=== PATIENT | female | born 1990 | race American Indian/Alaskan Native ===

== ENCOUNTER 2022-04-12 00:14 | Emergency (ER) | payer MEDICAID, OTHER, SELFPAY ==
[2022-04-12 00:15] VITALS: BP 125/66; PULSE 116; RESP 20; TEMP 36.6; O2SAT 98
--- NOTE | 2022-04-12 01:08 | ED.EXTPRO ---
HPI - Extremity Problem General Chief complaint: Extremity Problem,Nontraumatic Stated complaint: LEG INFECTION BOTH Time Seen by Provider: 04/12/22 01:00 Source: patient Mode of arrival: Ambulatory History of Present Illness HPI Narrative: Patient brought in by mother. Patient has been going to [facility] for the past week and they have been changing some skin dressing on her legs. 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 No IV drug use. She states she has chronic lesions on her body including her back that are not new. However dressings on the legs or new. No confirmed history of MRSA. Patient denies does not want a test. Has not been on any antibiotics recently. She has been at this facility for 1 week. The lesions on her left lower extremity from knee down to ankle have worsened in the past week. She states 1 of the reasons his because she has some shoes that she was wearing that irritated the lesions on her ankle. It was rubbing against the skin. This seemed to have triggered the other lesions on her left calf. Pants removed. Band-Aids were removed. Related Data Home Medications Medication Instructions Recorded Confirmed buprenorphine 12 mg-naloxone 3 mg 1 alli sublingual ##0 08/06/16 sublingual film (Suboxone) bupropion HCl 200 mg tablet,12 hr 450 mg PO QDAY ##0 08/06/16 sustained-release (Wellbutrin SR) Previous Rx's Medication Instructions Recorded doxycycline monohydrate 100 mg 100 mg PO BID #20 caps 04/12/22 capsule Review of Systems Review of Systems Narrative: GENERAL: Denies chills, fatigue, malaise, fever, sweats. HEENT: Denies sinus pain, ear pain, sore throat RESPIRATORY: Denies dyspnea, cough CARDIOVASCULAR: Denies chest pain, palpitations GASTROINTESTINAL: Denies nausea, vomiting, abdominal pain : Denies dysuria, frequency, hematuria MUSCULOSKELETAL: denies muscle or bony pain SKIN: Denies rash, positive skin lesions and skin wounds NEUROLOGIC: Denies weakness, numbness ROS Unobtainable: All systems reviewed & are unremarkable except as noted in HPI and below Patient History Social History Smoking Status: Current every day smoker Smoking Status: Current every day smoker Substance Use Type: opiates and methamphetamine Exam Narrative Exam Narrative: GENERAL: in no distress, not toxic not dyspneic HEAD: Normocephalic. EYES: Pupils equal round No scleral icterus. EXTREMITIES: No gross deformities. BACK: No flank tenderness. NEURO: AOx4. SKIN: Warm and dry, there are multiple small circular lesions/dry ulcerations on the back and legs and small amount on the arms. These appear to be chronic. Sizes range between 3 mm upwards to 1 cm. Predominantly of concern are the lesions on the left lower extremity. She was in socks removed. Pants are removed. Band-Aids were removed off of the left leg. There are multiple lesions ranging in size from a size of a dime to a half-dollar. No bleeding. No fat or bone or muscle exposure seen. They are superficial ulcerations. No red streaking. Mild tenderness. No palpable abscesses. Foot otherwise warm soft and pink. No necrotic tissue or toes. No crepitus on the skin or calf or leg. No pain out of proportion to exam PSYCH: Not anxious, is cooperative Initial Vital Signs Initial Vital Signs: Vital Signs Temperature 97.9 F 04/12/22 00:15 Pulse Rate 116 H 04/12/22 00:15 Respiratory Rate 20 04/12/22 00:15 Blood Pressure 125/66 04/12/22 00:15 Pulse Oximetry 98 04/12/22 00:15 Oxygen Delivery Method 04/12/22 00:15 Course Course Course Narrative: No new issues during course of stay Orders Ordered: Discontinued Medications Bacitracin (Bacitracin Oint 0.9 Gm Pckt) 2 applic TOP NOW ONE Stop: 04/12/22 01:26 Last Admin: 04/12/22 01:42 Dose: 2 applic Documented By: KEITH Doxycycline Hyclate (Doxycycline Hyclate 100 Mg Tablet) 100 mg PO NOW ONE Stop: 04/12/22 01:18 Last Admin: 04/12/22 01:43 Dose: 100 mg Documented By: KEITH Reevaluation(s) Reevaluation #1: Spoke with patient and mother. They agree with new style of dressing care and dressing changes. No longer to use Band-Aids. The adhesive seemed to irritate the skin edges more. Return precautions reviewed with him. Wound care clinic provided. Antibiotics started tonight. Prescription provided. They desire discharge home Time: 01:24 Vital Signs Vital signs: Vital Signs - 8 hr 04/12/22 00:15 Temperature 97.9 F Pulse Rate 116 H Respiratory Rate 20 Blood Pressure 125/66 Pulse Oximetry 98 Oxygen Delivery Method Room Air MDM - Extremity (Nontraumatic) Differential Diagnosis Differential diagnosis: Likely cellulitis MDM Narrative Medical decision making narrative: Appropriate for discharge home. New dressing care which includes bacitracin Kerlix and Reji wrap provided for patient. Wound care clinic referral given. Prescriptions provided for doxycycline and started here tonight. Not toxic at discharge. Return precautions reviewed with them. They desire discharge home Discharge Plan Departure Patient Disposition: Home Clinical Impression: Cellulitis Instructions: DI for Cellulitis -- Adult Activity Restrictions/Additional Instructions: Please change dressing on your leg daily as demonstrated here. Please call provided wound care clinic tomorrow for continued wound care treatment. Do not use Band-Aids to cover your wounds. Please continue antibiotic doxycycline that has been sent to your [facility], pick this up tomorrow. Return if worse if any questions or concerns Prescriptions: New doxycycline monohydrate 100 mg capsule 100 mg PO BID Qty: 20 0RF No Action bupropion HCl [Wellbutrin SR] 200 MG tablet extended release 12 hr 450 mg PO QDAY Qty: 0 buprenorphine-naloxone [Suboxone] 12 MG/3 MG film 1 alli Sublingual Qty: 0 Referrals: Kobi Good MD [Physician] - Visit Report Forms: Patient Portal/API
--- NOTE | 2022-04-12 01:15 | PC.NURSE ---
Areas of open sores to the left lower extremity - from knee to ankle - states that she was getting some wound care at the [facility] and that they gave her some kind of honey to put on the wounds - states that she ran out of supplies and was putting bandaids on the sites - today c/o numbness to the extremity - ambulatory with steady gait - unassisted - PWD with cap refill brisk
[2022-04-12] MEDS: BACITRACIN OINT 0.9 GM PCKT 2 APPLIC TOP (01:42)
[2022-04-12] MEDS: DOXYCYCLINE HYCLATE 100 MG TABLET PO (01:43)
== END 2022-04-12 01:52 | disposition home or self-care (01) ==
PROVIDERS: Emergency Provider Emergency Medicine
DX: L03.116 Cellulitis of left lower limb (principal)
CPT/HCPCS: 99283

== ENCOUNTER 2022-04-25 10:04 | Emergency (ER) | payer MEDICAID, OTHER, SELFPAY ==
[2022-04-25 10:35] VITALS: BP 127/73; PULSE 117; RESP 14; TEMP 37.1; O2SAT 98; BMI 32.1
--- NOTE | 2022-04-25 10:43 | DI.US.S_ITS ---
PROCEDURE: US PERIPH VENOUS LOW EXTREM LT INDICATIONS: rule out DVT TECHNIQUE: Real-time imaging, as well as color and pulse Doppler interrogation, were performed of the lower extremity deep veins from the inguinal ligament to the popliteal fossa. COMPARISON: None. FINDINGS: The common femoral, femoral and popliteal veins are normally compressible, and free of intraluminal thrombus. Color and pulse Doppler demonstrate normal phasic intraluminal flow. There is normal augmentation response to distal compression maneuver. There is an enlarged lymph node in the left inguinal area measuring 2.8 x 2.2 x 1.0 cm. IMPRESSION: 1. No DVT in the left lower extremity. 2. Left inguinal lymphadenopathy. Recommend clinical correlation and follow-up. Dictated by: John Silva M.D. on 04/25/2022 at 11:38 Approved by: John Silva M.D. on 04/25/2022 at 11:40
[2022-04-25] MEDS: BACITRACIN OINT 0.9 GM PCKT 1 APPLIC TOP (14:00)
[2022-04-25] MEDS: cephALEXin 250 MG CAPSULE 500 MG PO (14:01)
[2022-04-25] MEDS: KETOROLAC 30 MG/ML VIAL 15 MG IM (14:01)
[2022-04-25] MEDS: TRIMETH/SULFA 160/800 (DS) TABLET 1 TAB PO (14:01)
--- NOTE | 2022-04-25 14:01 | PC.NURSE ---
assessment done by provider
[2022-04-25 14:17] LABS: Add Manual Diff / Slide Review NO; Basophils Absolute Auto 0 /uL (0-100); Basophils Percent Auto 0.3 % (0-2); Eosinophils Absolute Auto 0 /uL (0-450); Eosinophils Percent Auto 0.2 % (2-4); Hematocrit 33.2 % (36-46); Hemoglobin 11.2 g/dL (12.0-16.0); Lymphocytes Absolute Auto 1600 /uL (1100-4500); Lymphocytes Percent Auto 11.9 % (25-40); Mean Corpuscular HGB Conc 33.7 % (30-36); Mean Corpuscular Hemoglobin 26.4 PG (26-34); Mean Corpuscular Volume 78.3 fL (80-100); Monocytes Absolute Auto 600 /uL (0-900); Monocytes Percent Auto 4.4 % (3-14); Neutrophils Absolute Auto 11100 /uL (1500-7000); Neutrophils Percent Auto 83.2 % (50-75); Platelet Count 332 X10^3/uL (150-400); Red Blood Cell Count 4.24 X10^6/uL (4.0-5.2); Red Cell Distribution Width 14.7 % (11.6-14.8); White Blood Cell Count 13.4 X10^3/uL (4.5-11.0)
[2022-04-25 14:27] LABS: Alanine Aminotransferase 27 IU/L (<35); Albumin 4.2 g/dL (3.5-5.0); Alkaline Phosphatase 134 U/L (38-126); Aspartate Aminotransferase 36 IU/L (14-36); BUN Creatinine Ratio 14.9 (6-22); Bilirubin Total 0.4 mg/dL (0.2-1.3); Blood Urea Nitrogen 13 mg/dL (7-17); Calcium 8.4 mg/dL (8.4-10.2); Carbon Dioxide 30 mmol/L (22-32); Chloride 99 mmol/L (98-107); Estimated Glomerular Filt Rate > 60 mL/min (>60); Globulin 4.3 g/dL (1.7-4.1); Glucose 99 mg/dL (70-100); HEMOLYSIS < 15 (0-50); Potassium 3.6 mmol/L (3.4-5.1); Sodium 138 mmol/L (137-145); Total Protein 8.5 g/dL (6.3-8.2)
[2022-04-25 14:42] VITALS: BP 119/77; PULSE 110; O2SAT 100
[2022-04-25 14:43] LABS: Procalcitonin 0.07 ng/mL (<0.5)
--- NOTE | 2022-04-25 16:22 | ED_ITS ---
HPI - Extremity Problem General Chief complaint: Extremity Problem,Nontraumatic Stated complaint: r/o DVT, swelling of the legs Time Seen by Provider: 04/25/22 12:10 Source: patient Mode of arrival: Wheelchair History of Present Illness HPI Narrative: This is a 31-year-old female presents to the emergency department complaining wounds on the bilateral lower extremities which she has been on doxycycline for for the last 10 days and under the care of [facility]. There has not been and wound culture obtained, patient came in today for new redness, tenderness and low-grade fever last night and today on her medial left lower extremity. She has approximately 10 healing wounds to left lower extremity, 2 wounds on her right lower extremity, and 3 wounds on her trunk which are all healing as expected. Patient states that they are not as swollen as they were, or as painful, she is been having dressing changes to all of them. Related Data Home Medications Medication Instructions Recorded Confirmed buprenorphine 12 mg-naloxone 3 mg 1 alli sublingual ##0 08/06/16 sublingual film (Suboxone) bupropion HCl 200 mg tablet,12 hr 450 mg PO QDAY ##0 08/06/16 sustained-release (Wellbutrin SR) Previous Rx's Medication Instructions Recorded doxycycline monohydrate 100 mg 100 mg PO BID #20 caps 04/12/22 capsule cephalexin 500 mg capsule 500 mg PO TID 7 days #21 caps 04/25/22 mupirocin 2 % topical ointment 1 applic topical BID #22 grams 04/25/22 sulfamethoxazole 800 1 tab PO BID #20 tabs 04/25/22 mg-trimethoprim 160 mg tablet (Bactrim DS) Allergies Allergy/AdvReac Type Severity Reaction Status Date / Time No Known Drug Allergies Allergy Verified 04/25/22 10:35 Review of Systems Review of Systems Narrative: Review of systems is negative for acute abnormalities unless otherwise noted in HPI Patient History Social History Smoking Status: Current every day smoker Smoking Status: Current every day smoker alcohol intake frequency: holidays/special occasions only Substance Use Type: opiates and methamphetamine Exam Narrative Exam Narrative: Reviewed vitals signs and nursing notes. General: cooperative, comfortable, in no acute distress, well groomed HEENT: symmetrical facial expressions, moist mucous membranes Cardiovascular: regular rate and rhythm, no peripheral edema, warm extremities MSK: moves all extremities, neurovascularly intact, no weakness, normal tone Skin: brisk capillary refill, without pallor, medial left lower leg with warmth, tenderness, erythema approximately 6 cm x 4 cm not associated with a wound, appr oximately 10 wounds to the left lower extremity which are all in varying degrees of healing, all of them were debrided of all tissue by myself, irrigated with normal saline, a wound culture was obtained of the other wounds and then treated with bacitracin and bandages. Neuro: normal speech and cognition, A&O x3, ambulatory, clear speech Psych: mental status is grossly normal, congruent mood, normal affect, pleasant and cooperative Initial Vital Signs Initial Vital Signs: Vital Signs Temperature 98.7 F 04/25/22 10:35 Pulse Rate 117 H 04/25/22 10:35 Respiratory Rate 14 04/25/22 10:35 Blood Pressure 127/73 04/25/22 10:35 Pulse Oximetry 98 04/25/22 10:35 Oxygen Delivery Method 04/25/22 10:35 Course Orders Ordered: Discontinued Medications Bacitracin (Bacitracin Oint 0.9 Gm Pckt) 1 applic TOP NOW ONE Stop: 04/25/22 12:44 Last Admin: 04/25/22 14:00 Dose: 1 applic Documented By: NR Cephalexin HCl (Cephalexin 250 Mg Capsule) 500 mg PO NOW ONE Stop: 04/25/22 12:48 Last Admin: 04/25/22 14:01 Dose: 500 mg Documented By: NR Ketorolac Tromethamine (Ketorolac 30 Mg/Ml Vial) 15 mg IM NOW ONE Stop: 04/25/22 12:44 Last Admin: 04/25/22 14:01 Dose: 15 mg Documented By: NR Trimethoprim/Sulfamethoxazole (Trimeth/Sulfa 160/800 (Ds) Tablet) 1 tab PO NOW ONE Stop: 04/25/22 12:44 Last Admin: 04/25/22 14:01 Dose: 1 tab Documented By: NR Vital Signs Vital signs: Vital Signs - 8 hr 04/25/22 10:35 04/25/22 14:42 Temperature 98.7 F Pulse Rate 117 H 110 H Respiratory Rate 14 Blood Pressure 127/73 119/77 Pulse Oximetry 98 100 Oxygen Delivery Method Room Air Room Air MDM - Extremity (Nontraumatic) Lab Data Result diagrams: 04/25/22 13:56 04/25/22 13:56 Labs: Lab Results 04/25/22 04/25/22 Range/Units 13:56 13:56 WBC 13.4 H (4.5-11.0) X10^3/uL RBC 4.24 (4.0-5.2) X10^6/uL Hgb 11.2 L (12.0-16.0) g/dL Hct 33.2 L (36-46) % MCV 78.3 L (80-100) fL MCH 26.4 (26-34) PG MCHC 33.7 (30-36) % RDW 14.7 (11.6-14.8) % Plt Count 332 (150-400) X10^3/uL Neut % (Auto) 83.2 H (50-75) % Lymph % (Auto) 11.9 L (25-40) % [place] % (Auto) 4.4 (3-14) % Eos % (Auto) 0.2 L (2-4) % Baso % (Auto) 0.3 (0-2) % Neut # (Auto) 31820 H (5038-7834) /uL Lymph # (Auto) 1600 (1069-9726) /uL [place] # (Auto) 600 (0-900) /uL Eos # (Auto) 0 (0-450) /uL Baso # (Auto) 0 (0-100) /uL Sodium 138 (137-145) mmol/L Potassium 3.6 (3.4-5.1) mmol/L Chloride 99 (98-107) mmol/L Carbon Dioxide 30 (22-32) mmol/L BUN 13 (7-17) mg/dL Creatinine 0.87 (0.52-1.04) mg/dL Estimated GFR > 60 (>60) mL/min BUN/Creatinine Ratio 14.9 (6-22) Glucose 99 (70-100) mg/dL Calcium 8.4 (8.4-10.2) mg/dL Total Bilirubin 0.4 (0.2-1.3) mg/dL AST 36 (14-36) IU/L ALT 27 (<35) IU/L Alkaline Phosphatase 134 H (38-126) U/L Total Protein 8.5 H (6.3-8.2) g/dL Albumin 4.2 (3.5-5.0) g/dL Globulin 4.3 H (1.7-4.1) g/dL Albumin/Globulin Ratio 1.0 (1.0-2.8) Procalcitonin 0.07 (<0.5) ng/mL Imaging Data US - DVT: Radiologist's Impression: PROCEDURE:? US PERIPH VENOUS LOW EXTREM LT ? INDICATIONS:? rule out DVT ? TECHNIQUE:? Real-time imaging, as well as color and pulse Doppler interrogation, were performed of the lower extremity deep veins from the inguinal ligament to the popliteal fossa.? ? COMPARISON:? None. ? FINDINGS:? The common femoral, femoral and popliteal veins are normally compressible, and free of intraluminal thrombus.? Color and pulse Doppler demonstrate normal phasic intraluminal flow.? There is normal augmentation response to distal compression maneuver. ? ? There is an enlarged lymph node in the left inguinal area measuring 2.8 x 2.2 x 1.0 cm. ? IMPRESSION:? ? 1. No DVT in the left lower extremity. 2. Left inguinal lymphadenopathy.? Recommend clinical correlation and follow- up.? ? ? Dictated by: John Silva M.D. on 04/25/2022 at 11:38 ? ? Approved by: John Silva M.D. on 04/25/2022 at 11:40 ? [facility] Narrative Medical decision making narrative: This is a pleasant 31-year-old female who presents to the emergency department with wounds that are healing to bilateral lower extremities and occasional was her chest from previous substance abuse. She is been on doxycycline for 10 days, her wounds have gotten better but last night she had new erythema starting to her left medial calf not associated with a wound and it has been progressive with a low-grade fever since then. This looks most like cellulitis but has grown to approximately 6 in x 4 in in the last 24 hours. No streaking or extension is noticeable at this time, it is not circumferential. Doppler venous ultrasound of her left lower extremity does not show any DVT, she does have lymphadenopathy of her left inguinal region. Her labs are pertinent for a leukocytosis of 13.4, without significant anemia, no electrolyte abnormalities, procalcitonin is 0.07. Her wounds were all debrided by myself, irrigated and cleansed with normal saline, covered with bacitracin and Band-Aids. A wound culture was obtained from the base of 1 of the wounds. Blood cultures were also obtained with her blood work. Patient was prescribed cephalexin and doxycycline for the next 7-10 days. Topical mupirocin ointment, and in the emergency department she was given Toradol, these medications, and encouraged to stay hydrated. She is on Suboxone for pain, denies need for additional pain medicine beyond the Toradol this time. We will follow-up on the blood culture and wound culture. This is most likely cellulitis, but could be MSSA, MRSA, or necrotizing bacteria. Patient is appropriate and amenable to discharge home. Vital signs are stable on repeat examination is unremarkable. Patient has been informed of results. Patient has been given strict return to ER precautions for any new or worsening symptoms. Patient understands to follow up closely with outpatient providers as instructed. Patient understands plan and agrees to discharge home. All questions and concerns answered at this time. Discharge Plan Departure Patient Disposition: Home Clinical Impression: Cellulitis, Encounter for assessment for deep vein thrombosis (DVT) Instructions: DI for Cellulitis -- Adult, DI for Wound Infection Activity Restrictions/Additional Instructions: *You have been diagnosed with cellulitis due to unknown organism and wounds healing of various stages. We will call you if your antibiotic coverage is not adequate if your blood cultures are positive. Please come back to the emergency department if you have fever, chills, or if you are getting worse. Thank you for your patients today and for trusting us with your care. I hope that you heal without complication. Please take ibuprofen in addition to your other medications as needed for pain the Keflex is 3 times a day for 7 days and the Bactrim is twice a day for 10 days. Please use the topical antibiotic ointment on all of the open wounds and covered with a Band-Aid, change them daily. Please remember to try and remove the tissue in the shower each day. *What to do: *Please continue to take your regular medications as directed. [ x] New medication prescriptions sent to your pharmacy: [ [facility]] [ ] New medication written as a paper prescription [ ] No new medications given *Please follow up with your primary care provider in 2-3 days, call for an appointment. Let them know you were seen in the Emergency Department and that we asked that you be seen for follow-up. We will electronically transmit a record of today's note if your PCP is in our system *If you do not have a primary care provider please contact [phone] to establish care with one of the [facility] primary care providers. *Return to Emergency Department if you should have any new, worsening, or concerning symptoms, such as [fever greater than 101F, chills, worsening pain, persistent vomiting or other bothersome symptoms]. Prescriptions: New mupirocin 2 % ointment 1 applic topical BID Qty: 22 0RF sulfamethoxazole-trimethoprim [Bactrim DS] 800-160 mg tablet 1 tab PO BID Qty: 20 0RF cephalexin 500 mg capsule 500 mg PO TID 7 Days Qty: 21 0RF No Action bupropion HCl [Wellbutrin SR] 200 MG tablet extended release 12 hr 450 mg PO QDAY Qty: 0 buprenorphine-naloxone [Suboxone] 12 MG/3 MG film 1 alli Sublingual Qty: 0 doxycycline monohydrate 100 mg capsule 100 mg PO BID Qty: 20 0RF Referrals: [facility] [Outside] Visit Report Forms: Patient Portal/API
== END 2022-04-25 14:43 | disposition home or self-care (01) ==
PROVIDERS: Emergency Provider Nurse Practitioner Critical Care Medicine
DX: L03.116 Cellulitis of left lower limb (principal)
CPT/HCPCS: 36415; 80053; 84145; 85025; 87040; 87070; 87075; 87077; 87147; 87186; 87205; 93971; 96372; 99283; 99284; J1885

== ENCOUNTER 2023-02-14 21:08 | Emergency (ER) | payer MEDICAID, OTHER, SELFPAY ==
[2023-02-14 21:18] VITALS: BP 116/71; PULSE 111; RESP 18; TEMP 36.6; O2SAT 100
--- NOTE | 2023-02-14 21:50 | PC.NURSE ---
spoke with poison control who stated since pt was able to tolerate food and fluids and was feeling ok at this time they did not require any tx
--- NOTE | 2023-02-14 21:55 | PC.NURSE ---
updated pt with poison control's recommendations, pt decided to leave but stated they would return if needed
--- NOTE | 2023-02-14 21:59 | PC.NURSE ---
discussed pt with Dr Sharif prior to calling poison control
--- NOTE | 2023-02-15 04:52 | ED_ITS ---
HPI - Medical Clearance General Chief complaint: Medical Clearance Stated complaint: Ingested moth balls Source: patient Mode of arrival: Ambulatory History of Present Illness HPI Narrative: Patient family left without being seen. Poison control had been contacted by nursing. Patient was tolerating oral food and fluids and recommendations from poison control was did not require additional treatment. This was relayed to myself by nursing. Related Information Home Medications Medication Instructions Recorded Confirmed buprenorphine 12 mg-naloxone 3 mg 1 alli sublingual ##0 08/06/16 sublingual film (Suboxone) bupropion HCl 200 mg tablet,12 hr 450 mg PO QDAY ##0 08/06/16 sustained-release (Wellbutrin SR) Previous Rx's Medication Instructions Recorded doxycycline monohydrate 100 mg 100 mg PO BID #20 caps 04/12/22 capsule mupirocin 2 % topical ointment 1 applic topical BID #22 grams 04/25/22 sulfamethoxazole 800 1 tab PO BID #20 tabs 04/25/22 mg-trimethoprim 160 mg tablet (Bactrim DS) Allergies Allergy/AdvReac Type Severity Reaction Status Date / Time No Known Drug Allergies Allergy Verified 04/25/22 10:35 Patient History Social History Smoking Status: Current every day smoker Smoking Status: Current every day smoker alcohol intake frequency: holidays/special occasions only Substance Use Type: opiates and methamphetamine Exam Initial Vital Signs Initial Vital Signs: Vital Signs Temperature 97.9 F 02/14/23 21:18 Pulse Rate 111 H 02/14/23 21:18 Respiratory Rate 18 02/14/23 21:18 Blood Pressure 116/71 02/14/23 21:18 Pulse Oximetry 100 02/14/23 21:18 Oxygen Delivery Method Room Air 02/14/23 21:18 Discharge Plan Departure Patient Disposition: Left Without Being Seen Clinical Impression: Patient left after triage Prescriptions: No Action bupropion HCl [Wellbutrin SR] 200 MG tablet extended release 12 hr 450 mg PO QDAY Qty: 0 buprenorphine-naloxone [Suboxone] 12 MG/3 MG film 1 alli Sublingual Qty: 0 doxycycline monohydrate 100 mg capsule 100 mg PO BID Qty: 20 0RF mupirocin 2 % ointment 1 applic topical BID Qty: 22 0RF sulfamethoxazole-trimethoprim [Bactrim DS] 800-160 mg tablet 1 tab PO BID Qty: 20 0RF
== END 2023-02-14 22:01 | disposition left against medical advice (07) ==
PROVIDERS: Emergency Provider Emergency Medicine
DX: T60.2X1A Toxic effect of other insecticides, accidental (unintentional), initial encounter (principal)
CPT/HCPCS: 99281